=== PATIENT | male | born 1980 | race Caucasian/White ===

== ENCOUNTER 2017-02-19 12:55 | Emergency (ER) | payer OTHER ==
[~2017-02-19] VITALS: Ht 180.3 cm; Wt 111.4 kg
[~2017-02-19 12:55] MED LIST: ProAirHFA IH
[2017-02-19 13:22] VITALS: BP 132/87; PULSE 96; RESP 12; O2SAT 98
--- NOTE | 2017-02-19 14:11 | DRSVH ---
PROCEDURE: X-RAY LEFT HAND, MINIMUM THREE VIEWS ([id number]) INDICATIONS: fall TECHNIQUE: 3 views of the hand(s) acquired. COMPARISON: [facility], , HAND MIN 3VW (LT), 06/07/2008, 23:05. FINDINGS: Bones: No fractures or dislocations. Carpal bones are normally aligned. No suspicious bony lesions . Old fifth metacarpal fracture. Soft tissues: No suspicious soft tissue calcifications. IMPRESSION: No visualized acute fracture or dislocation. However, if clinical concern and/or pain pe rsist, short interval imaging followup in 7-10 days is recommended, as occult injury cannot be defini tively excluded. Dictated by: Mae Kovacs M.D. on 02/19/2017 at 14:09 Approved by: Mae Kovacs M.D. on 02/19/2017 at 14:09
--- NOTE | 2017-02-19 14:47 | ED.REPORT ---
HPI-Extremity Problem Upper Date of Service Feb 19, 2017 ED Provider: Naga Gutierrez MD A 37 year old male presents to the ED complaining of left hand pain secondary to a sports injury that occurred just prior to arrival. Patient was reportedly playing with his son when his left hand was accidentally pushed inward. His pain has been constant since onset and his is currently expressing concern for fracture. He denies any other injuries at this time. Nursing Notes Stated Complaint: POSS BROKE LT HAND Chief Complaint: Extremity Trauma Nursing Notes Reviewed: Yes Allergies: Coded Allergies: Pork (Verified Allergy, Unknown, 02/19/17) egg (Verified Allergy, Unknown, 02/19/17) Scheduled Albuterol-Expunged Drug, Do Not Renew! (ProAir HFA-Expunged Drug, Do Not Renew! ) 200 Puff/8.5 Gm Hfa.aer.ad 8.5 GM IH PRN General Time Seen by MD: 14:46 Chief Complaint Hand Injury left Hx Obtained From: Patient Arrived By: Walk-in Onset Occurred: Just prior to arrival Symptom Duration: Since onset Caused by: Accidental Location: : Hand left Quality: Painful Severity: Current: Mild Severity: Maximum: Moderate Pertinent Negative: Pt denies other symptoms Recent Healthcare: No recent doctor visit, No recent hospitalization Past Medical History Past Medical History None reported Past Surgical History None reported Smoking History Never Smoker Social History Alcohol Use: Denies alcohol use Drug Use: Denies drug use Other Social History: Good social support, , Local resident Ambulatory Status Independent Review of Systems Musculoskeletal: Reports: Joint pain (Left hand pain) Complete sys rev & neg: except as marked. Physical Exam Initial Vital Signs Vital Signs (First) Date Time Temp Pulse Resp B/P Pulse Ox O2 Delivery O2 Flow Rate FiO2 02/19/17 13:22 36.3 96 12 132/87 98 Room Air Initial VS: Reviewed General/Constitutional: Awake, Alert, No acute distress, Well appearing, Well developed Neck: Atraumatic, Supple Respiratory / Chest: Atraumatic, No respiratory distress Cardiovascular: Peripheral circulation NL, Pulses = bilaterally Upper Extremity / MS: Atraumatic, Inspection NL, No deformity, Neurologic intact, Vascular intact Wrist / Hand: Atraumatic, Inspection NL, No deformity, Neurologic intact, Vascular intact Left Hand: Positive: Tenderness present... Tender base of L thumb diffuse Interpretation & Diagnostics X-Ray Interpretation Xray Interpretation: IMPRESSION: No visualized acute fracture or dislocation. However, if clinical concern and/or pain persist, short interval imaging followup in 7-10 days is recommended, as occult injury cannot be definitively excluded. Dictated by: Mae Kovacs M.D. on 02/19/2017 at 14:09 X-Ray Ordered: Hand left Interpretation / Wet Read by: Interpret - Radiologist Re-Eval/Medical Decision Med Decision/Clinical Course 37-year-old male presenting with left hand pain after wrestling with his son. He has diffuse tenderness at the base of the left thumb. X-ray shows no evidence of fracture. Cannot rule out occult fracture or occult scaphoid fracture. Given his degree of tenderness he was placed in a volar wrist splint with plans to follow up with his primary doctor several days for repeat x-ray and possible orthopedic surgery referral. Re-Evaluation/Progress : Time of Eval: 15:10 Patient Status: Condition improved Re-Evaluation/Progress Note: He is informed of his results and diagnosis. All questions about the intended treatment plan are addressed. He understands and agrees with the plan. Counseled Regarding: Diagnosis, Need for follow-up, When/why to return to ED Discharge & Departure Impression: Primary Impression: Sprain of left hand Encounter type: initial encounter Qualified Code: S63.92XA - Sprain of unspecified part of left wrist and hand, initial encounter Disposition: Home Discharge Condition All VS Reviewed: Yes Condition: Improved Patient Instructions: Contusion in Adults (ED), Finger Sprain (ED) Additional Instructions: Thank you for trusting us with your care this afternoon. Your emergency department X-ray is negative for fracture. Take 1-2 200mg of ibuprofen every 4-6 hours as needed for pain. Use ice 3 times per day to help relieve swelling. Keep immobilized in the splint to help relieve the pain. Please schedule a follow up appointment with your primary care physician in the next 2-3 days for a recheck and possible orthopedic surgery referral. Please return to the emergency department for any new or worsening symptoms including any numbness, tingling or weakness in your other fingers. Referrals: [facility] ([facility]) Scribe Attestation Portions of this note were transcribed by Jericho Coleman. I, Dr. Gutierrez personally performed the history, physical exam and medical decision-making; I reviewed and confirmed the accuracy of the information in the transcribed note. Signed by: Sondra Siddiqi, 02/19/17 1510. Naga Gutierrez MD Feb 19, 2017 14:47 JERICHO COLEMAN Feb 19, 2017 14:53
== END 2017-02-19 15:26 | disposition home or self-care (01) ==
LOC: SED 12:55
DX: S63.8X2A Sprain of other part of left wrist and hand, initial encounter (principal); X50.0XXA Overexertion from strenuous movement or load, initial encounter; Y93.61 Activity, american tackle football; Y92.9 Unspecified place or not applicable; Y99.8 Other external cause status; Z91.012 Allergy to eggs